=== PATIENT | male | born 1950 | race Caucasian/White ===

== ENCOUNTER → 2017-09-24 | Outpatient (CLI) | payer OTHER ==
--- NOTE | 2017-09-24 14:46 | US ---
HISTORY: Inguinal, pelvic, perineal and testicular pain. Study: Bladder ultrasound Comparison: No priors Technique: Grayscale imaging of the urinary bladder is performed. Findings: Urinary bladder is intrinsically normal. At the time of the examination the urinary bladder appeared to contain about 143 mL. There is prostatic enlargement present. The prostate measures about 5 cm in diameter. There is an approximately 3 x 3.6 cm intravesical component. No intrinsic bladder mass or s tone is seen. IMPRESSION: Prostatic enlargement with intravesical component. Reported By:
--- NOTE | 2017-09-24 14:51 | US ---
Examination: Scrotal ultrasound. Clinical History: Inguinal, pelvic, perineal and testicular pain. Technique: Real-time grayscale ultrasound was used to evaluate the testes bilaterally. Comparison: None available. Findings: Both testes are normal in echogenicity with no focal mass. There is normal and equal blood flow demon strated to the testes bilaterally. The right testis measures 4.0 x 1.8 x 2.8 cm and the left testis m easures 4.1 x 1.6 x 2.6 cm. There is a 1.2 x 0.8 cm circumscribed anechoic mass associated with the left epididymis, consistent w ith a small epididymal cyst or spermatocele. There are 2 additional tiny 1-2 mm cystic lesions associ ated with the right epididymis, consistent with small epididymal cysts or spermatoceles. Blood flow is demonstrated to the left and right epididymis, suggestive of a bilateral epididymitis. No hydrocele or varicocele is noted. Impression: 1. Small epididymal cysts versus spermatoceles associated with the left and right epididymis. 2. Blood flow is demonstrated to the left and right epididymis, suggestive of a bilateral epididymiti s. 3. The remainder of the examination is unremarkable. Reported By:
== END | disposition home or self-care (01) | DRG 392 ==
LOC: RAD 10:43
PROVIDERS: ATTEND Nurse Practitioner Family
DX: R10.2 Pelvic and perineal pain (principal); N50.811 Right testicular pain; N50.812 Left testicular pain; N40.0 Benign prostatic hyperplasia without lower urinary tract symptoms
CPT/HCPCS: 76856; 76870

== ENCOUNTER 2019-05-13 21:16 | Inpatient (IN) ==
--- NOTE | 2019-05-13 21:56 | DR.CP ---
HPI Time Seen Time Seen by Provider: 05/13/19 21:53 HPI Comment HPI Comment: PATIENT IS 68YR OLD MALE WITH HISTORY OF [place], S/P CABG AND CARDIAC STENT IS IN ED WITH INCREEASING INTERMITTENT CHEST PRESSURE AND PAIN, 8/10 PAIN IN SUBSTERNAL AREA RADIATING TO BACK OF CHEST. PAIN ASSOCIATED WITH SOB AND WE AKNESS. NO FEVER. Complaint Chief Complaint Doctor Comments: INTERMITTENT CHEST PAIN FOR 4 WEEKS THAT IS WORSE TONIGHT. Reviewed Nurses Notes Review: Yes Source History Provided: Patient Mode of Arrival Mode of Arrival: Ambulatory Timing Came on: Suddenly Pain: Present Now Duration Duration: Intermittent Duration: Weeks Location Location of Chest Pain: Chest (SUNSTERNAL CHEST PAIN.) Chest Pain Radiation Location: Back Context Onset: At rest and With light exertion Cardiac Risk Factors: Smoker (PREVIOUS SMOKER.) PE Risk Factors: None History of: [place] and Angioplasty Prehospital Care: None Quality Quality: Sharp and Pressure like Severity Severity: Moderate Modifying Factors Worsens: Exertion Impoves: Rest Associated Signs and Symptoms Associated Signs and Symptoms: Shortness of Breath Other History Other History: CAD. ROS Review of Systems Constitutional: See HPI, Weakness and Fatigue; negative Chills and Fever Eyes: No Symptoms Reported and See HPI; negative Eye Pain, Blurred Vision and Diplopia ENTM: No Symptoms Reported and See HPI; negative Ear Pain, Nose Discharge, Epistaxis, Nose Congestion and Throat Pain Respiratoy: See HPI, Non-Productive Cough and Short of Breath; negative Wheezing Cardiovascular: See HPI and Chest Pain; negative Edema, Palpitations and Syncope Gastrointestinal/Abdominal: No Symptoms Reported and See HPI; negative Abdominal Pain, Constipation, Diarrhea, Nausea and Vomiting Genitourinary: No Symptoms Reported and See HPI; negative Dysuria, Frequency and Hematuria Neurological: See HPI, Weakness and Dizziness; negative Headache Musculoskeletal: No Symptoms Reported and See HPI; negative Back Pain, Muscle Pain and Neck Pain Integumentary: See HPI; negative Change in Color, Dryness, Rash and Juandice Hematologic/Lymphatic: See HPI, Easy Bleeding and Easy Bruising; negative Swollen Glands and Lymphadenopathy Endocrine: No Symptoms Reported and See HPI; negative Increased Thirst, Increased Urine and Decreased Appetite Psychiatric: No Symptoms Reported and See HPI; negative Hallucinations All Other Systems: Reviewed and Negative PE Vitals Vitals: Temperature 97.8 F Pulse Rate [Brachial] 92 Pulse Rate 78 Respiratory Rate 20 Blood Pressure [Left Arm] 104/59 Blood Pressure 120/66 O2 Sat by Pulse Oximetry 96 General Limitations: No Limitations General Appearance: Alert and In No Apparent Distress Head Head Exam: Normal Inspection, Atraumatic and Normocephalic Eyes Eye exam: Normal Appearance, PERRL and EOMI; negative Scleral Icterus and Conjunctival Injection ENT ENT Exam: Normal Exam, Normal Oropharynx, Normal External Ear Exam and TM's Normal Bilaterally Chest Chest Inspection: Normal Inspection and Symmetric Chest Wall Rise; negative Tenderness and Rash Respiratory Respiratory Exam: Normal Lung Sounds Bilat; negative Accessory Muscle Use, Chest Wall Tenderness and Respiratory Distress Respiratory Exam: Bilateral: Rhonchi and Lower: Rhonchi Cardiovascular Cardiovascular Exam: Regular Rate, Normal Rhythm and Normal Heart Sounds; negative Systolic Murmur and Diastolic Murmur Pulse: Normal Edema: Normal Abdominal Exam Abdominal Exam: Normal Inspection, Normal Bowel Sounds and Soft; negative Tenderness, Organomegaly and Mass Extremities Extremities Exam: Normal Inspection and Normal Capillary Refill; negative Tenderness, Edema and Calf Tenderness Back Back Exam: Normal Inspection; negative Tenderness, (R) CVA Tenderness, (L) CVA Tenderness, Paraspinal Tenderness and Vertebral Tenderness Neurologic Neurological Exam: Alert, Oriented X3 and CN II-XII Intact; negative Motor Sensory Deficit Psychiatric Psychiatric Exam: Normal Affect and Normal Mood Skin Skin Exam: Warm, Dry, Intact and Normal Color MDM Differential Diagnosis Differential Diagnosis: Angina, Chest Wall Pain, CHF, Costochondritis, Gastritis, Myocardial Infarction, Pericarditis, Pneumonia, Pneumothorax and Pulmonary Embolus COURSE Treatment Treatment: SEE ORDERS. Education/Counseling Education/Counseling: Patient Educated On: Diagnosis ROR Labs Reviewed Laboratory Results Reviewed?: Yes Result Diagrams: 05/18/19 05:03 05/18/19 05:03 Laboratory: 05/14/19 02:00 Blood Blood Culture - Final 05/14/19 02:13 Blood Blood Culture - Final 05/15/19 12:05 Sputum - Expectorated Sputum Sputum Culture - Final 05/15/19 12:05 Sputum - Expectorated Sputum - Final WBC 3.9 X10^3/uL (3.6-10.0) 05/18/19 05:03 RBC 3.36 X10^6/uL (4.7-6.0) L 05/18/19 05:03 Hgb 11.5 g/dL (13.5-18.0) L 05/18/19 05:03 Hct 33.4 % (42.0-54.0) L 05/18/19 05:03 MCV 99.5 fL (80.0-100.0) 05/18/19 05:03 MCH 34.2 pg (27.0-34.0) H 05/18/19 05:03 MCHC 34.4 g/dL (33.0-35.0) 05/18/19 05:03 RDW 16.2 % (11.6-16.5) 05/18/19 05:03 Plt Count 107 X10^3/uL (150.0-450.0) L 05/18/19 05:03 MPV 7.1 fL (7.4-11.0) L 05/18/19 05:03 Neut % (Auto) 65.1 % (42.0-75.0) 05/18/19 05:03 Lymph % (Auto) 18.8 % (21.0-51.0) L 05/18/19 05:03 [place] % (Auto) 7.8 % (0.0-13.0) 05/18/19 05:03 Eos % (Auto) 8.0 % (0.9-2.9) H 05/18/19 05:03 Baso % (Auto) 0.3 % (0.2-1.0) 05/18/19 05:03 Neut # (Auto) 2.5 x10^3/uL (2.2-4.8) 05/18/19 05:03 Lymph # (Auto) 0.7 X10^3/uL (1.3-2.9) L 05/18/19 05:03 [place] # (Auto) 0.3 x10^3/uL (0.3-0.8) 05/18/19 05:03 Eos # (Auto) 0.3 x10^3/uL (0.0-0.2) H 05/18/19 05:03 Baso # (Auto) 0.0 X10^3/uL (0.0-0.1) 05/18/19 05:03 Absolute Nucleated RBC 0.2 /100WBC 05/18/19 05:03 ESR 43 MM/HOUR (0-15) H 05/14/19 04:14 Sodium 137 mmol/L (136-145) 05/18/19 05:03 Corrected Sodium TNP 05/18/19 05:03 Potassium 3.8 mmol/L (3.5-5.1) 05/18/19 05:03 Chloride 105 mmol/L (98-107) 05/18/19 05:03 Carbon Dioxide 23.9 mmol/L (21-32) 05/18/19 05:03 BUN 8 mg/dL (7-18) 05/18/19 05:03 Creatinine 0.86 mg/dL (0.70-1.30) 05/18/19 05:03 Est GFR (MDRD) Af Amer > 60 (>60) 05/18/19 05:03 Est GFR (MDRD) Non-Af > 60 (>60) 05/18/19 05:03 Glucose 101 mg/dL (65-99) H 05/18/19 05:03 Calcium 8.4 mg/dL (8.5-10.1) L 05/18/19 05:03 Corrected Calcium 9.6 mg/dL (8.5-10.1) 05/18/19 05:03 Magnesium 2.0 mg/dL (1.7-2.9) 05/15/19 04:46 Total Bilirubin 0.40 mg/dL (0.2-1.0) 05/18/19 05:03 AST 42 Units/L (15-37) H 05/18/19 05:03 ALT 36 Units/L (12-78) 05/18/19 05:03 Alkaline Phosphatase 74 Units/L (46-116) 05/18/19 05:03 Creatine Kinase 24 Units/L (39-308) L 05/14/19 11:10 CK-MB (CK-2) < 1.0 ng/mL (0-4.0) 05/14/19 11:10 CK/CKMB % Calc 4.2 % (<4) 05/14/19 11:10 Troponin I < 0.02 ng/mL (0-1.5) 05/14/19 11:10 C-Reactive Protein 70.30 mg/L (0-3.0) H 05/14/19 04:14 Total Protein 6.2 g/dL (6.4-8.2) L 05/18/19 05:03 Albumin 2.5 g/dL (3.4-5.0) L 05/18/19 05:03 Globulin 3.7 g/dL (2.5-4.5) 05/18/19 05:03 Albumin/Globulin Ratio 0.7 Ratio (1.1-2.1) L 05/18/19 05:03 Specimen Type Clean catch urine 05/14/19 10:58 Urine Color Dark yellow (YELLOW) 05/14/19 10:58 Urine Appearance Hazy (CLEAR) 05/14/19 10:58 Urine pH 5.0 (5.0 - 8.0) 05/14/19 10:58 Ur Specific [place] 1.010 (1.000-1.030) 05/14/19 10:58 Urine Protein 1+ (NEGATIVE) 05/14/19 10:58 Urine Glucose (UA) Negative (NEGATIVE) 05/14/19 10:58 Urine Ketones Negative (NEGATIVE) 05/14/19 10:58 Urine Occult Blood 1+ (NEGATIVE) 05/14/19 10:58 Urine Nitrite Negative (NEGATIVE) 05/14/19 10:58 Urine Bilirubin Negative (NEGATIVE) 05/14/19 10:58 Urine Urobilinogen 1+ (NORMAL) 05/14/19 10:58 Ur Leukocyte Esterase 1+ (NEGATIVE) 05/14/19 10:58 Urine RBC 0-2 /HPF (NONE SEEN) 05/14/19 10:58 Urine WBC 3-5 /HPF (NONE SEEN) 05/14/19 10:58 Ur Squamous Epith Cells Rare /HPF (NEGATIVE) 05/14/19 10:58 Urine Bacteria Trace /HPF (NEGATIVE) 05/14/19 10:58 Ur Culture Indicated? No/not indicated 05/14/19 10:58 XRAY XRAY Interpreted by: Radiologist XRAY Findings: REPORT ON RECORD NOTED AND DISCUSS WITH PATIENT. Opioid Opioid Risk Tool Age (Micheal box if 16-45): No Total: 0 Total Score Risk Category: Low Risk Copyright: Romel GANDHI predicting aberrant behaviors Management Prescription drug monitoring program results: PDMP was not reviewed Diagnosis Discharge Problem: Pneumonia Chest pain Qualifiers: Chest pain type: precordial pain Qualified Code(s): R07.2 - Precordial pain Instructions Instructions: Community-Acquired Pneumonia, Adult, [id number]
[2019-05-13 22:03] LABS: BASOPHILS # (AUTO) 0.1 X10^3/uL (0.0-0.1); BASOPHILS % (AUTO) 0.6 % (0.2-1.0); EOSINOPHILS # (AUTO) 0.2 x10^3/uL (0.0-0.2); EOSINOPHILS % (AUTO) 2.1 % (0.9-2.9); HEMATOCRIT 43.7 % (42.0-54.0); HEMOGLOBIN 15.4 g/dL (13.5-18.0); LYMPHOCYTES # (AUTO) 0.8 X10^3/uL (1.3-2.9); LYMPHOCYTES % (AUTO) 8.5 % (21.0-51.0); MEAN CORPUSCULAR HEMOGLOBIN 34.1 pg (27.0-34.0); MEAN CORPUSCULAR HGB CONC 35.1 g/dL (33.0-35.0); MEAN CORPUSCULAR VOLUME 97.2 fL (80.0-100.0); MEAN PLATELET VOLUME 6.9 fL (7.4-11.0); MONOCYTES # (AUTO) 0.2 x10^3/uL (0.3-0.8); MONOCYTES % (AUTO) 2.2 % (0.0-13.0); NEUTROPHILS # (AUTO) 7.9 x10^3/uL (2.2-4.8); NEUTROPHILS % (AUTO) 86.6 % (42.0-75.0); PLATELET COUNT 167 X10^3/uL (150.0-450.0); RED CELL DISTRIBUTION WIDTH 16.2 % (11.6-16.5); WHITE BLOOD COUNT 9.1 X10^3/uL (3.6-10.0)
--- NOTE | 2019-05-13 22:18 | RAD ---
Chest AP portable Indication: Chest pain radiating to the right side. Findings: There is no pneumothorax. There is cardiomegaly with sternotomy change. Monitoring leads obscure detail. There is COPD with interstitial lung disease and scarring. Dense left lung opacities are concerning for pneumonia. Impression: 1. Cardiomegaly and COPD 2. Opacities in left lung favoring multifocal pneumonia. Underlying neoplasm is not excluded. Compare with any available outside prior studies. Follow-up to resolution. CT follow-up recommended, potentially non emergently, depending on symptoms. Reported By:
[2019-05-13 22:19] LABS: BLOOD UREA NITROGEN 13 mg/dL (7-18); CALCIUM 9.5 mg/dL (8.5-10.1); CARBON DIOXIDE 21.9 mmol/L (21-32); CHLORIDE 98 mmol/L (98-107); COR NA(FOR HYPERGLY) 133 mmol/L (136-145); CREATININE 0.91 mg/dL (0.70-1.30); SODIUM 132 mmol/L (136-145); TROPONIN I < 0.02 ng/mL (0-1.5); eGFR NON BLACK RACES > 60 (>60)
[2019-05-13 22:24] LABS: ALANINE AMINOTRANSFERASE 43 Units/L (12-78); ALBUMIN 3.4 g/dL (3.4-5.0); ALKALINE PHOSPHATASE 105 Units/L (46-116); ASPARTATE AMINO TRANSFERASE 39 Units/L (15-37); CKMB % 3.9 % (<4); CREATINE KINASE 26 Units/L (39-308); CREATINE KINASE MB < 1.0 ng/mL (0-4.0); TOTAL PROTEIN 8.2 g/dL (6.4-8.2)
[2019-05-14] MEDS ORDERED: NS 1000 ML 1,000 ML IV ONE (00:08)
[2019-05-14] MEDS ORDERED: NS 1000 ML 1,000 ML ONE (00:13)
[2019-05-14] MEDS ORDERED: SILVER NITRATE STICK APPL ONE (00:44)
[2019-05-14] MEDS ORDERED: ZOFRAN INJ 4 MG VIAL IVP ONE (01:53)
[2019-05-14] MEDS ORDERED: MORPHINE SULFATE INJ 4 MG IVP ONE (01:53)
[2019-05-14] MEDS ORDERED: ROCEPHIN VIAL 1 GRAM IM ONE (01:58)
[2019-05-14] MEDS ORDERED: ZOFRAN INJ 4 MG VIAL ONE (02:16)
[2019-05-14] MEDS ORDERED: ROCEPHIN VIAL 1 GRAM ONE (02:17)
[2019-05-14] MEDS ORDERED: MORPHINE SULFATE INJ 4 MG ONE (02:17)
[2019-05-14] MEDS ORDERED: ROCEPHIN VIAL 1 GRAM IVP ONE (02:18)
[2019-05-14] MEDS ORDERED: SALINE 3% 15 ML NEB TX NEB ONE (02:45)
[2019-05-14 03:10] VITALS: BMI 24.2
[2019-05-14] MEDS: ULTRAM PO SCH ×4 (04:42→20:02)
[2019-05-14 05:09] LABS: BASOPHILS % (AUTO) 0.3 % (0.2-1.0); EOSINOPHILS # (AUTO) 0.2 x10^3/uL (0.0-0.2); EOSINOPHILS % (AUTO) 2.6 % (0.9-2.9); HEMATOCRIT 40.4 % (42.0-54.0); HEMOGLOBIN 14.1 g/dL (13.5-18.0); LYMPHOCYTES % (AUTO) 11.1 % (21.0-51.0); MEAN CORPUSCULAR HEMOGLOBIN 34.3 pg (27.0-34.0); MEAN CORPUSCULAR VOLUME 98.1 fL (80.0-100.0); MEAN PLATELET VOLUME 7.7 fL (7.4-11.0); MONOCYTES # (AUTO) 0.2 x10^3/uL (0.3-0.8); MONOCYTES % (AUTO) 2.1 % (0.0-13.0); NEUTROPHILS # (AUTO) 7.2 x10^3/uL (2.2-4.8); NEUTROPHILS % (AUTO) 83.9 % (42.0-75.0); PLATELET COUNT 144 X10^3/uL (150.0-450.0); RED BLOOD COUNT 4.12 X10^6/uL (4.7-6.0); RED CELL DISTRIBUTION WIDTH 16.3 % (11.6-16.5); WHITE BLOOD COUNT 8.6 X10^3/uL (3.6-10.0)
[2019-05-14 05:18] LABS: ALANINE AMINOTRANSFERASE 40 Units/L (12-78); ALKALINE PHOSPHATASE 93 Units/L (46-116); ASPARTATE AMINO TRANSFERASE 38 Units/L (15-37); BLOOD UREA NITROGEN 12 mg/dL (7-18); CALCIUM 9.1 mg/dL (8.5-10.1); CARBON DIOXIDE 22.9 mmol/L (21-32); CHLORIDE 99 mmol/L (98-107); COR CA(FOR HYPOALB) 9.9 mg/dL (8.5-10.1); COR NA(FOR HYPERGLY) 132 mmol/L (136-145); CREATININE 0.73 mg/dL (0.70-1.30); MAGNESIUM 1.6 mg/dL (1.7-2.9); SODIUM 132 mmol/L (136-145); TOTAL PROTEIN 7.4 g/dL (6.4-8.2); eGFR NON BLACK RACES > 60 (>60)
[2019-05-14 05:37] LABS: CKMB % 3.7 % (<4); CREATINE KINASE 27 Units/L (39-308); CREATINE KINASE MB < 1.0 ng/mL (0-4.0); TROPONIN I < 0.02 ng/mL (0-1.5)
[2019-05-14] MEDS ORDERED: VIBRAMYCIN 100 MG in D5W 250 ML IV 250 ML IV ONE (06:00)
[2019-05-14] MEDS: DUONEB 0.5 MG/3 MG NEB SCH ×4 (08:37→20:01)
[2019-05-14] MEDS ORDERED: ROCEPHIN VIAL 1 GRAM IVP SCH (09:00)
[2019-05-14] MEDS ORDERED: METHOTREXATE PO SCH (09:00)
[2019-05-14] MEDS: LEVAQUIN PREMIX IV 500 MG 500 MG/100 ML BAG IV SCH (09:04)
[2019-05-14] MEDS: FORTAZ or TAZICEF VIAL INJ IVP SCH ×3 (09:04→21:15)
[2019-05-14] MEDS: ALDACTONE TAB 25 MG PO SCH (09:05)
[2019-05-14] MEDS ORDERED: PHARMACY CONSULT - DOSE _____ XX SCH (10:00)
[2019-05-14] MEDS ORDERED: NS 100 ML IV 100 ML ONE (10:03)
[2019-05-14] MEDS: LOVENOX INJ 40 MG SYR SC SCH (10:47)
[2019-05-14] MEDS: ZOFRAN INJ 4 MG VIAL IVP PRN ×2 (10:50→20:03)
[2019-05-14] MEDS: NORCO 5/325 MG TAB PO PRN ×2 (11:10→23:00)
--- NOTE | 2019-05-14 11:35 | CT ---
HISTORY: Chest pain, shortness of breath Study: CT chest with contrast Comparison: None Technique: Axial post-contrast images with coronal and sagittal reformats. Dose reduction procedures were used with mA/kv adjusted for body size. Findings: Examination of the mediastinum demonstrated no evidence for mediastinal masses, enlarged mediastinal or enlarged hilar adenopathy, aortic abnormality of significance or pleural effusions. There is a hiatal hernia present. No chest wall or axillary abnormality is identified. Those portions of the upper abdominal organs visualized were within normal limits. Examination of the lung salas demonstrated diffuse severe changes of paraseptal and centrilobular emphysema. No definite nodules, masses, alveolar infiltrates, areas of consolidation, peribronchial thickening, or bronchiectasis is identified. Mild peripheral paraseptal interstitial lung changes are present. The lungs are mildly hyperinflated. 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
[2019-05-14 11:46] LABS: CREATINE KINASE 24 Units/L (39-308)
[2019-05-14 12:10] LABS: BILIRUBIN,URINE NEGATIVE (NEGATIVE); BLOOD/HEMOGLOBIN,URINE 1+ (NEGATIVE); GLUCOSE, URINE NEGATIVE (NEGATIVE); KETONES,URINE NEGATIVE (NEGATIVE); LEUKOCYTE ESTERASE ,URINE 1+ (NEGATIVE); NITRITES,URINE NEGATIVE (NEGATIVE); PROTEIN,URINE 1+ (NEGATIVE); UROBILINOGEN,URINE 1+ (NORMAL)
[2019-05-14 12:11] LABS: CREATINE KINASE MB < 1.0 ng/mL (0-4.0)
[2019-05-14 12:11] LABS: APPEARANCE,URINE HAZY (CLEAR); COLOR,URINE DARK YELLOW (YELLOW)
[2019-05-14 12:12] LABS: CKMB % 4.2 % (<4)
[2019-05-14 12:14] LABS: TROPONIN I < 0.02 ng/mL (0-1.5)
[2019-05-14 12:19] LABS: BACTERIA,URINE TRACE /HPF (NEGATIVE); RBC,URINE 0-2 /HPF (NONE SEEN); SQUAMOUS EPITHELIAL CELL,UR RARE /HPF (NEGATIVE)
[2019-05-14] MEDS: MORPHINE SULFATE INJ 2 MG INJ IVP PRN ×2 (13:40→19:47)
[2019-05-14] MEDS ORDERED: VIBRAMYCIN 100 MG in D5W 250 ML IV 250 ML IV SCH (21:00)
[2019-05-14] MEDS ORDERED: NS 1/2 1000 ML IV 1,000 ML ONE (21:39)
[2019-05-14] MEDS: NS 1/2 1000 ML IV 1,000 ML IV SCH (21:46)
[2019-05-14] MEDS: MAGNESIUM SULFATE 1 GRAM/100 mL PREMIX 1 GM/100 ML BAG IV PRN ×2 (21:46→22:59)
--- NOTE | 2019-05-14 22:35 | DR.H&P ---
H&P - History & Physical for Day of: H&P Date: 05/14/19 - Chief Complaint Chief Complaint: CHEST PAIN, SOB - History of Present Illness History of Present Illness: IS A 68 YEAR OLD PATIENT OF [email or web address] WHO PRESENTED TO THE ER WITH COMPLAINTS OF CHEST PAIN AND SHORTNESS OF BREATH. HE STATES THAT PAINS STARTED FOUR WEEKS AGO AND HAS PROGRESSIVELY GOTTEN WORSE. ON ARRIVAL, VITALS WERE 98.6-18-132-98%-123/83. LABS WERE OBTAINED. ABNORMAL LAB VALUES INCLUDE THE FOLLOWING: RBC 4.50, SODIUM 132, GLUCOSE 127, TOTAL BILI 1.30, AST 39, CREATINE KINASE 26, GLOBULIN 4.8. CRP 70.30, ESR 43. CARDIAC ENZYMES WITHIN NORMAL LIMITS. URINALYSIS OBTAINED AND REVEALED: WBC 3-5, RBC 0- 2, BACTERIA TRACE, LEUKOCYTES 1+. BLOOD CULTURES ARE PENDING. A CHEST XRAY WAS OBTAINED AND REVEALED: Cardiomegaly and COPD. Opacities in left lung favoring multifocal pneumonia. Underlying neoplasm is not excluded. Compare with any available outside prior studies. Follow-up to resolution. CT follow-up recommended, potentially non emergently, depending on symptoms. AN EKG WAS OBTAINED AND REVEALED: SINUS TACHYCARDIA WITH HR 112. HE WAS GIVEN DOXYCYCLINE AND ROCEPHIN IN THE ER. WE ADMITTED PATIENT FOR FURTHER EVALUATION AND TREATMENT OF CHEST PAIN RULE OUT ACUTE [place] AND PNEUMONIA. WE STARTED NS AT 50ML/HR, LEVAQUIN 500MG IV DAILY, FORTAZ 1G IV Q8H, AND RESPIRATORY TREATMENTS. WE WILL OBTAIN SERIAL CARDIAC ENZYMES AND EKGs. OTHERWISE, WE PLAN TO FOLLOW-UP WITH AM LABS AND CONTINUE TO MONITOR. - Past Medical History Past Medical History: Arthritis, [place] - Past Surgical History Surgical History: Angioplasty/Stents, Appendectomy, CABG/Valve Surgery, Cholecystectomy - Family History Family Medical History: Cancer, [place], Coronary Artery Disease, Sudden Cardiac , Hypertension - Social History Does patient currently use any type of tobacco product: No Have you used tobacco products in the last 12 months: No Type of Tobacco Use: None Alcohol Use: Rarely Drug Use: None Prescription drug monitoring program results: PDMP reviewed and no concerns identified - Medications Home Medications: No Known Drug Allergies Allergy (Verified 05/14/19 09:39) CONTINUE taking the following medications methotrexate sodium 2.5 mg PO DAILY 05/14/19 [History] spironolactone 50 mg PO DAILY 05/14/19 [History] tramadol 50 mg PO BID 05/14/19 [History] - Review of Systems Constitutional: No Symptoms Reported Eyes: No Symptoms Reported ENT: No Symptoms Reported Respiratory: Shortness of Breath, SOB with Excertion Cardiovascular: Chest Pain Gastrointestinal: No Symptoms Reported Genitourinary: No Symptoms Reported Musculoskeletal: No Symptoms Reported Skin: No Symptoms Reported Neurological: Weakness - Physical Exam Vital Signs: Temperature 97.7 F Pulse Rate [Brachial] 98 Pulse Rate 101 Respiratory Rate 20 Blood Pressure [Left Arm] 119/69 Blood Pressure 120/66 O2 Sat by Pulse Oximetry 93 Oriented: Normal Eyes: Normal Ear: Normal Nose: Normal Throat: Normal Respiratory: Diminished Throughout Cardiovascular: Tachycardia. negative: S3, S4, Murmur : Normal Auscultation: Bowel Sounds: Normal Palpation: Normal Tenderness: Normal Skin: Normal Musculoskeletal: Normal Psychiatric: Normal Mood Description: Calm Affect: Normal Speech Pattern: Clear - Assessment/Plan (1) Pneumonia Qualifiers: Pneumonia type: due to unspecified organism Laterality: left Lung location: unspecified part of lung Qualified Code(s): J18.9 - Pneumonia, unspecified organism Status: Acute Plan: IV ANTIBIOTICS, RESPIRATORY TX, CONTINUE TO MONITOR (2) Chest pain, rule out acute myocardial infarction Status: Acute Plan: SERIAL CARDIAC ENZYMES AND EKGS - Allergies Allergies/Adverse Reactions: Allergies Allergy/AdvReac Type Severity Reaction Status Date / Time No Known Drug Allergies Allergy Verified 05/14/19 09:39
[2019-05-15] MEDS: MORPHINE SULFATE INJ 2 MG INJ IVP PRN ×4 (03:14→19:34)
[2019-05-15] MEDS: FORTAZ or TAZICEF VIAL INJ IVP SCH ×3 (05:15→21:13)
[2019-05-15 05:32] LABS: BASOPHILS % (AUTO) 0.3 % (0.2-1.0); EOSINOPHILS # (AUTO) 0.3 x10^3/uL (0.0-0.2); EOSINOPHILS % (AUTO) 5.5 % (0.9-2.9); HEMATOCRIT 37.6 % (42.0-54.0); LYMPHOCYTES # (AUTO) 0.7 X10^3/uL (1.3-2.9); MEAN CORPUSCULAR HEMOGLOBIN 34.1 pg (27.0-34.0); MEAN CORPUSCULAR HGB CONC 34.6 g/dL (33.0-35.0); MEAN CORPUSCULAR VOLUME 98.5 fL (80.0-100.0); MEAN PLATELET VOLUME 7.3 fL (7.4-11.0); MONOCYTES # (AUTO) 0.1 x10^3/uL (0.3-0.8); MONOCYTES % (AUTO) 2.4 % (0.0-13.0); NEUTROPHILS # (AUTO) 4.1 x10^3/uL (2.2-4.8); NEUTROPHILS % (AUTO) 77.8 % (42.0-75.0); PLATELET COUNT 132 X10^3/uL (150.0-450.0); RED BLOOD COUNT 3.82 X10^6/uL (4.7-6.0); WHITE BLOOD COUNT 5.3 X10^3/uL (3.6-10.0)
[2019-05-15 05:41] LABS: ALANINE AMINOTRANSFERASE 35 Units/L (12-78); ALBUMIN 2.8 g/dL (3.4-5.0); ALKALINE PHOSPHATASE 86 Units/L (46-116); ASPARTATE AMINO TRANSFERASE 31 Units/L (15-37); BLOOD UREA NITROGEN 8 mg/dL (7-18); CALCIUM 8.7 mg/dL (8.5-10.1); CARBON DIOXIDE 24.9 mmol/L (21-32); CHLORIDE 97 mmol/L (98-107); COR CA(FOR HYPOALB) 9.7 mg/dL (8.5-10.1); CREATININE 0.82 mg/dL (0.70-1.30); SODIUM 131 mmol/L (136-145); eGFR NON BLACK RACES > 60 (>60)
--- NOTE | 2019-05-15 06:07 | RAD ---
Examination: AP chest History: SOB Comparison reference: Chest CT 05/14/2019 Findings: Continued normal heart size with surgical findings of CABG. The lungs are hyperinflated with chronic interstitial disease. Hiatal hernia is suggested. Impression: Findings described consistent with COPD and chronic interstitial pulmonary disease. Status post CABG. Suspect hiatal hernia. Reported By:
[2019-05-15] MEDS: ALDACTONE TAB 25 MG PO SCH (08:27)
[2019-05-15] MEDS: DUONEB 0.5 MG/3 MG NEB SCH ×4 (08:37→20:00)
[2019-05-15] MEDS: LEVAQUIN PREMIX IV 500 MG 500 MG/100 ML BAG IV SCH (09:03)
[2019-05-15] MEDS: LOVENOX INJ 40 MG SYR SC SCH (09:03)
[2019-05-15] MEDS: ULTRAM PO SCH ×2 (09:05→21:13)
[2019-05-15] MEDS: NS 1/2 1000 ML IV 1,000 ML IV SCH ×4 (09:42→23:25)
[2019-05-15] MEDS: NORCO 5/325 MG TAB PO PRN (17:15)
[2019-05-15] MEDS ORDERED: NS 1/2 1000 ML IV 1,000 ML ONE (19:37)
[2019-05-16] MEDS: MORPHINE SULFATE INJ 2 MG INJ IVP PRN ×5 (00:10→21:23)
[2019-05-16] MEDS: NORCO 5/325 MG TAB PO PRN ×2 (01:55→16:52)
[2019-05-16] MEDS: FORTAZ or TAZICEF VIAL INJ IVP SCH ×3 (05:26→21:23)
[2019-05-16 05:36] LABS: BASOPHILS % (AUTO) 0.4 % (0.2-1.0); EOSINOPHILS # (AUTO) 0.4 x10^3/uL (0.0-0.2); EOSINOPHILS % (AUTO) 6.5 % (0.9-2.9); HEMATOCRIT 35.7 % (42.0-54.0); HEMOGLOBIN 12.3 g/dL (13.5-18.0); LYMPHOCYTES % (AUTO) 16.7 % (21.0-51.0); MEAN CORPUSCULAR HEMOGLOBIN 33.9 pg (27.0-34.0); MEAN CORPUSCULAR HGB CONC 34.5 g/dL (33.0-35.0); MEAN CORPUSCULAR VOLUME 98.2 fL (80.0-100.0); MEAN PLATELET VOLUME 7.3 fL (7.4-11.0); MONOCYTES # (AUTO) 0.2 x10^3/uL (0.3-0.8); MONOCYTES % (AUTO) 3.8 % (0.0-13.0); NEUTROPHILS # (AUTO) 4.2 x10^3/uL (2.2-4.8); NEUTROPHILS % (AUTO) 72.6 % (42.0-75.0); PLATELET COUNT 130 X10^3/uL (150.0-450.0); RED BLOOD COUNT 3.64 X10^6/uL (4.7-6.0); RED CELL DISTRIBUTION WIDTH 15.9 % (11.6-16.5); WHITE BLOOD COUNT 5.8 X10^3/uL (3.6-10.0)
[2019-05-16 05:47] LABS: ALANINE AMINOTRANSFERASE 32 Units/L (12-78); ALBUMIN 2.8 g/dL (3.4-5.0); ALKALINE PHOSPHATASE 84 Units/L (46-116); ASPARTATE AMINO TRANSFERASE 36 Units/L (15-37); BLOOD UREA NITROGEN 9 mg/dL (7-18); CALCIUM 8.6 mg/dL (8.5-10.1); CARBON DIOXIDE 23.6 mmol/L (21-32); CHLORIDE 98 mmol/L (98-107); COR CA(FOR HYPOALB) 9.6 mg/dL (8.5-10.1); CREATININE 0.76 mg/dL (0.70-1.30); SODIUM 132 mmol/L (136-145); TOTAL PROTEIN 6.9 g/dL (6.4-8.2); eGFR NON BLACK RACES > 60 (>60)
--- NOTE | 2019-05-16 06:17 | RAD ---
HISTORY: Dyspnea Study: Single-view chest Comparison: May 14, 2019 and May 15, 2019 Findings: Prior sternotomy. The trachea is midline. The cardiac silhouette is unremarkable. There is chronic interstitial thickening compatible with COPD without definite new lobar mass or consolidation. There is no effusion or pneumothorax. The bony thorax is grossly unremarkable. Hiatal hernia is again noted. IMPRESSION: COPD without definite new acute cardiopulmonary disease. Reported By:
[2019-05-16] MEDS: LOVENOX INJ 40 MG SYR SC SCH (08:08)
[2019-05-16] MEDS: LEVAQUIN PREMIX IV 500 MG 500 MG/100 ML BAG IV SCH (08:08)
[2019-05-16] MEDS: ULTRAM PO SCH ×2 (08:08→21:23)
[2019-05-16] MEDS: DUONEB 0.5 MG/3 MG NEB SCH ×4 (09:25→21:00)
[2019-05-16] MEDS: PEPCID 20 MG IV PREMIX* 20 MG/50 ML BAG IV SCH ×2 (10:03→21:22)
[2019-05-16] MEDS: PROTONIX INJ 40 MG VIAL IVP SCH ×2 (10:03→21:23)
[2019-05-16] MEDS: TORADOL 30 MG VIAL IVP PRN ×2 (10:13→17:59)
[2019-05-16] MEDS: NS 1/2 1000 ML IV 1,000 ML IV SCH ×2 (13:34→13:53)
[2019-05-16] MEDS ORDERED: NS 1/2 1000 ML IV 1,000 ML ONE (13:40)
--- NOTE | 2019-05-16 22:27 | PCM.PROG ---
Progress Note - Progress Note for Day of Date of Exam: 05/15/19 - Subjective Subjective: WAS ADMITTED FOR PNEUMONIA AND CHEST PAIN, RULE OUT ACUTE [place]. TODAY, HE IS ALERT AND ORIENED, LYING IN BED ON MORNING ROUNDS. HE CONTINUE WITH COMPLAINTS OF SHORTNESS OF BREATH TODAY. HE DENIES CHEST PAIN, BUT DOES REPORT GENERALIZED BODY ACHES. HE DOES HAVE A HISTORY OF RHEUMATOID ARTHRITIS. ON EXAMINATION, HEART IS REGULAR IN RATE AND RHYTHM. BILATERAL LUNGS ARE NOTED WITH DIMINISHED LUNG SOUNDS THROUGHOUT. ABDOMEN IS ROUND, SOFT, AND NON-TENDER WITH NORMAL BOWEL SOUNDS IN ALL QUADRANTS. BILATERAL ELBOWS ARE NOTED WITH FLUID ACCUMULATION. HIS VITALS THIS MORNING ARE 98.1-97-18-97%-132/79. LABS WERE OBTAINED. ABNORMAL LAB VALUES INCLUDE THE FOLLOWING: RBC 3.82, HG 13.0, HCT 37.6, PLT COUNT 132, SODIUM 131, CHLORIDE 97, GLUCOSE 101, TOTAL BILI 1.50, ALBUMIN 2.8. BLOOD AND SPUTUM CULTURES ARE PENDING. A CHEST XRAY WAS OBTAINED AND REVEALED: Findings described consistent with COPD and chronic interstitial pulmonary disease. Status post CABG. Suspect hiatal hernia. HE IS CURRENTLY RECEIVING IV FLUIDS AND IV ANTIBIOTICS. WE WILL CONTINUE WITH CURRENT PLAN OF CARE TODAY. OTHERWISE, WE PLAN TO FOLLOW UP WITH AM LABS AND CONTINUE TO MONITOR. - Past Medical Family Social History Past Med/Fam/Surg Hx: No changes since H&P Allergies: Allergies No Known Drug Allergies Allergy (Verified 05/14/19 09:39) - Review of Systems ROS: No change since H&P - Vital Signs and I&O's Vital Signs: Temperature 97.8 F Pulse Rate [Brachial] 102 Pulse Rate 96 Respiratory Rate 18 Blood Pressure [Left Arm] 117/63 Blood Pressure 120/66 O2 Sat by Pulse Oximetry 96 Intake and Output: Intake & Output 05/14/19 05/15/19 05/16/19 05/17/19 11:59 11:59 11:59 11:59 Intake Total 300 / 300 3172 / 3172 2603 / 2603 1130 / 1130 Balance 300 / 300 3172 / 3172 2603 / 2603 1130 / 1130 - Physical Exam Oriented: Normal Eyes: Normal Ear: Normal Nose: Normal Throat: Normal Respiratory: Generalized, Diminished Cardiovascular: Normal. negative: S3, S4, Murmur : Normal Auscultation: Bowel Sounds: Normal Palpation: Normal Tenderness: Normal Skin: Normal Musculoskeletal: Normal Psychiatric: Normal Mood Description: Calm Affect: Normal Speech Pattern: Clear, Appropriate - Laboratory and Diagnostics Result Diagrams: 05/16/19 04:49 05/16/19 04:49 Labs: 05/14/19 02:13 Blood Blood Culture - Preliminary 05/14/19 02:00 Blood Blood Culture - Preliminary 05/15/19 12:05 Sputum - Expectorated Sputum Sputum Culture - Preliminary 05/15/19 12:05 Sputum - Expectorated Sputum - Final Laboratory WBC 5.8 X10^3/uL (3.6-10.0) 05/16/19 04:49 RBC 3.64 X10^6/uL (4.7-6.0) L 05/16/19 04:49 Hgb 12.3 g/dL (13.5-18.0) L 05/16/19 04:49 Hct 35.7 % (42.0-54.0) L 05/16/19 04:49 MCV 98.2 fL (80.0-100.0) 05/16/19 04:49 MCH 33.9 pg (27.0-34.0) 05/16/19 04:49 MCHC 34.5 g/dL (33.0-35.0) 05/16/19 04:49 RDW 15.9 % (11.6-16.5) 05/16/19 04:49 Plt Count 130 X10^3/uL (150.0-450.0) L 05/16/19 04:49 MPV 7.3 fL (7.4-11.0) L 05/16/19 04:49 Neut % (Auto) 72.6 % (42.0-75.0) 05/16/19 04:49 Lymph % (Auto) 16.7 % (21.0-51.0) L 05/16/19 04:49 [place] % (Auto) 3.8 % (0.0-13.0) 05/16/19 04:49 Eos % (Auto) 6.5 % (0.9-2.9) H 05/16/19 04:49 Baso % (Auto) 0.4 % (0.2-1.0) 05/16/19 04:49 Neut # (Auto) 4.2 x10^3/uL (2.2-4.8) 05/16/19 04:49 Lymph # (Auto) 1.0 X10^3/uL (1.3-2.9) L 05/16/19 04:49 [place] # (Auto) 0.2 x10^3/uL (0.3-0.8) L 05/16/19 04:49 Eos # (Auto) 0.4 x10^3/uL (0.0-0.2) H 05/16/19 04:49 Baso # (Auto) 0.0 X10^3/uL (0.0-0.1) 05/16/19 04:49 Absolute Nucleated RBC 0.0 /100WBC 05/16/19 04:49 ESR 43 MM/HOUR (0-15) H 05/14/19 04:14 Sodium 132 mmol/L (136-145) L 05/16/19 04:49 Corrected Sodium TNP 05/16/19 04:49 Potassium 3.7 mmol/L (3.5-5.1) 05/16/19 04:49 Chloride 98 mmol/L (98-107) 05/16/19 04:49 Carbon Dioxide 23.6 mmol/L (21-32) 05/16/19 04:49 BUN 9 mg/dL (7-18) 05/16/19 04:49 Creatinine 0.76 mg/dL (0.70-1.30) 05/16/19 04:49 Est GFR (MDRD) Af Amer > 60 (>60) 05/16/19 04:49 Est GFR (MDRD) Non-Af > 60 (>60) 05/16/19 04:49 Glucose 94 mg/dL (65-99) 05/16/19 04:49 Calcium 8.6 mg/dL (8.5-10.1) 05/16/19 04:49 Corrected Calcium 9.6 mg/dL (8.5-10.1) 05/16/19 04:49 Magnesium 2.0 mg/dL (1.7-2.9) 05/15/19 04:46 Total Bilirubin 0.70 mg/dL (0.2-1.0) 05/16/19 04:49 AST 36 Units/L (15-37) 05/16/19 04:49 ALT 32 Units/L (12-78) 05/16/19 04:49 Alkaline Phosphatase 84 Units/L (46-116) 05/16/19 04:49 Creatine Kinase 24 Units/L (39-308) L 05/14/19 11:10 CK-MB (CK-2) < 1.0 ng/mL (0-4.0) 05/14/19 11:10 CK/CKMB % Calc 4.2 % (<4) 05/14/19 11:10 Troponin I < 0.02 ng/mL (0-1.5) 05/14/19 11:10 C-Reactive Protein 70.30 mg/L (0-3.0) H 05/14/19 04:14 Total Protein 6.9 g/dL (6.4-8.2) 05/16/19 04:49 Albumin 2.8 g/dL (3.4-5.0) L 05/16/19 04:49 Globulin 4.1 g/dL (2.5-4.5) 05/16/19 04:49 Albumin/Globulin Ratio 0.7 Ratio (1.1-2.1) L 05/16/19 04:49 Specimen Type Clean catch urine 05/14/19 10:58 Urine Color Dark yellow (YELLOW) 05/14/19 10:58 Urine Appearance Hazy (CLEAR) 05/14/19 10:58 Urine pH 5.0 (5.0 - 8.0) 05/14/19 10:58 Ur Specific [place] 1.010 (1.000-1.030) 05/14/19 10:58 Urine Protein 1+ (NEGATIVE) 05/14/19 10:58 Urine Glucose (UA) Negative (NEGATIVE) 05/14/19 10:58 Urine Ketones Negative (NEGATIVE) 05/14/19 10:58 Urine Occult Blood 1+ (NEGATIVE) 05/14/19 10:58 Urine Nitrite Negative (NEGATIVE) 05/14/19 10:58 Urine Bilirubin Negative (NEGATIVE) 05/14/19 10:58 Urine Urobilinogen 1+ (NORMAL) 05/14/19 10:58 Ur Leukocyte Esterase 1+ (NEGATIVE) 05/14/19 10:58 Urine RBC 0-2 /HPF (NONE SEEN) 06/14/19 10:58 Urine WBC 3-5 /HPF (NONE SEEN) 05/14/19 10:58 Ur Squamous Epith Cells Rare /HPF (NEGATIVE) 05/14/19 10:58 Urine Bacteria Trace /HPF (NEGATIVE) 05/14/19 10:58 Ur Culture Indicated? No/not indicated 05/14/19 10:58 - Plan (1) Pneumonia Status: Acute Qualifiers: Pneumonia type: due to unspecified organism Laterality: left Lung location: unspecified part of lung Qualified Code(s): J18.9 - Pneumonia, unspecified organism Plan: IV ANTIBIOTICS, RESPIRATORY TX, CONTINUE TO MONITOR (2) Chest pain, rule out acute myocardial infarction Status: Acute Plan: CONTINUE TO MONITOR
[2019-05-17] MEDS ORDERED: NS 1/2 1000 ML IV 1,000 ML ONE ×2 (01:38→19:36)
[2019-05-17] MEDS: MORPHINE SULFATE INJ 2 MG INJ IVP PRN ×3 (02:00→21:28)
[2019-05-17] MEDS: NS 1/2 1000 ML IV 1,000 ML IV SCH ×2 (04:52→15:08)
[2019-05-17] MEDS: NORCO 5/325 MG TAB PO PRN (05:09)
[2019-05-17] MEDS: FORTAZ or TAZICEF VIAL INJ IVP SCH ×3 (05:37→21:08)
[2019-05-17 06:19] LABS: ALANINE AMINOTRANSFERASE 36 Units/L (12-78); ALBUMIN 2.7 g/dL (3.4-5.0); ALKALINE PHOSPHATASE 79 Units/L (46-116); ASPARTATE AMINO TRANSFERASE 45 Units/L (15-37); BLOOD UREA NITROGEN 8 mg/dL (7-18); CALCIUM 8.4 mg/dL (8.5-10.1); CARBON DIOXIDE 22.3 mmol/L (21-32); CHLORIDE 101 mmol/L (98-107); COR CA(FOR HYPOALB) 9.4 mg/dL (8.5-10.1); SODIUM 134 mmol/L (136-145); TOTAL PROTEIN 6.5 g/dL (6.4-8.2); eGFR NON BLACK RACES > 60 (>60)
[2019-05-17 06:42] LABS: BASOPHILS % (AUTO) 0.4 % (0.2-1.0); EOSINOPHILS # (AUTO) 0.4 x10^3/uL (0.0-0.2); EOSINOPHILS % (AUTO) 7.7 % (0.9-2.9); HEMATOCRIT 33.6 % (42.0-54.0); HEMOGLOBIN 11.6 g/dL (13.5-18.0); LYMPHOCYTES # (AUTO) 0.9 X10^3/uL (1.3-2.9); LYMPHOCYTES % (AUTO) 15.9 % (21.0-51.0); MEAN CORPUSCULAR HEMOGLOBIN 34.3 pg (27.0-34.0); MEAN CORPUSCULAR HGB CONC 34.6 g/dL (33.0-35.0); MEAN PLATELET VOLUME 7.3 fL (7.4-11.0); MONOCYTES # (AUTO) 0.4 x10^3/uL (0.3-0.8); MONOCYTES % (AUTO) 6.7 % (0.0-13.0); NEUTROPHILS # (AUTO) 4.1 x10^3/uL (2.2-4.8); NEUTROPHILS % (AUTO) 69.3 % (42.0-75.0); PLATELET COUNT 119 X10^3/uL (150.0-450.0); RED CELL DISTRIBUTION WIDTH 16.2 % (11.6-16.5); WHITE BLOOD COUNT 5.9 X10^3/uL (3.6-10.0)
--- NOTE | 2019-05-17 06:57 | RAD ---
HISTORY: Shortness of breath Study: Chest AP portable Comparison: 05/16/2019 Findings: Patient is status post median sternotomy and CABG. The heart is upper limits normal in size. No congestive heart failure is noted. The lungs are well inflated and free of acute infiltrates. Emphysematous and interstitial lung changes are present. No pleural effusions are identified. IMPRESSION: No acute infiltrates Emphysematous COPD Reported By:
[2019-05-17] MEDS: DUONEB 0.5 MG/3 MG NEB SCH ×4 (09:15→20:16)
[2019-05-17] MEDS: LOVENOX INJ 40 MG SYR SC SCH (09:17)
[2019-05-17] MEDS: PEPCID 20 MG IV PREMIX* 20 MG/50 ML BAG IV SCH ×2 (09:18→20:41)
[2019-05-17] MEDS: PROTONIX INJ 40 MG VIAL IVP SCH ×2 (09:18→20:41)
[2019-05-17] MEDS: ULTRAM PO SCH ×2 (09:18→20:41)
[2019-05-17] MEDS: LEVAQUIN PREMIX IV 500 MG 500 MG/100 ML BAG IV SCH (10:12)
[2019-05-17] MEDS: TORADOL 30 MG VIAL IVP PRN ×2 (15:01)
--- NOTE | 2019-05-17 19:47 | PCM.PROG ---
Progress Note - Progress Note for Day of Date of Exam: 05/16/19 - Subjective Subjective: WAS ADMITTED FOR PNEUMONIA AND CHEST PAIN, RULE OUT ACUTE NC. TODAY, HE IS ALERT AND ORIENED, LYING IN BED ON MORNING ROUNDS. HE CONTINUE WITH COMPLAINTS OF SHORTNESS OF BREATH AND GENERALIZED BODY ACHES TODAY. HE HAS A HISTORY OF RHEUMATOID ARTHRITIS. ON EXAMINATION, HEART IS REGULAR IN RATE AND RHYTHM. BILATERAL LUNGS ARE NOTED WITH DIMINISHED LUNG SOUNDS THROUGHOUT. ABDOMEN IS ROUND, SOFT, AND NON-TENDER WITH NORMAL BOWEL SOUNDS IN ALL QUADRANTS. BILATERAL ELBOWS ARE NOTED WITH FLUID ACCUMULATION. HIS VITALS THIS MORNING ARE 97.6-92-18-98%-98/66. LABS WERE OBTAINED. ABNORMAL LAB VALUES INCLUDE THE FOLLOWING: RBC 3.64, HGB 12.3, HCT 35.7, PLT COUNT 130, SODIUM 132, ALBUMIN 2.8. BLOOD AND SPUTUM CULTURES ARE PENDING. A CHEST XRAY WAS OBTAINED AND REVEALED: COPD without definite new acute cardiopulmonary disease. HE IS CURRENTLY RECEIVING IV FLUIDS AND IV ANTIBIOTICS. WE WILL CONTINUE WITH CURRENT PLAN OF CARE TODAY AND ADD TORADOL 30MG IV Q6H, PEPCID IV, AND PROTONIX IV. OTHERWISE, WE PLAN TO FOLLOW UP WITH AM LABS AND CONTINUE TO MONITOR. - Past Medical Family Social History Past Med/Fam/Surg Hx: No changes since H&P Allergies: Allergies No Known Drug Allergies Allergy (Verified 05/14/19 09:39) - Review of Systems ROS: No change since H&P - Vital Signs and I&O's Vital Signs: Temperature 97.7 F Pulse Rate [Brachial] 97 Pulse Rate 94 Respiratory Rate 20 Blood Pressure [Left Arm] 112/65 Blood Pressure 120/66 O2 Sat by Pulse Oximetry 95 Intake and Output: Intake & Output 05/15/19 05/16/19 05/17/19 05/18/19 11:59 11:59 11:59 11:59 Intake Total 3172 / 3172 2603 / 2603 2910 / 2910 800 / 800 Balance 3172 / 3172 2603 / 2603 2910 / 2910 800 / 800 - Physical Exam Oriented: Normal Eyes: Normal Ear: Normal Nose: Normal Throat: Normal Respiratory: Generalized, Diminished Cardiovascular: Normal. negative: S3, S4, Murmur : Normal Auscultation: Bowel Sounds: Normal Palpation: Normal Tenderness: Normal Skin: Normal Musculoskeletal: Normal Psychiatric: Normal Mood Description: Calm Affect: Normal Speech Pattern: Clear, Appropriate - Laboratory and Diagnostics Result Diagrams: 05/17/19 05:08 05/17/19 05:08 Labs: 05/15/19 12:05 Sputum - Expectorated Sputum Sputum Culture - Final 05/15/19 12:05 Sputum - Expectorated Sputum - Final 05/14/19 02:13 Blood Blood Culture - Preliminary 05/14/19 02:00 Blood Blood Culture - Preliminary Laboratory WBC 5.9 X10^3/uL (3.6-10.0) 05/17/19 05:08 RBC 3.40 X10^6/uL (4.7-6.0) L 05/17/19 05:08 Hgb 11.6 g/dL (13.5-18.0) L 05/17/19 05:08 Hct 33.6 % (42.0-54.0) L 05/17/19 05:08 MCV 99.0 fL (80.0-100.0) 05/17/19 05:08 MCH 34.3 pg (27.0-34.0) H 05/17/19 05:08 MCHC 34.6 g/dL (33.0-35.0) 05/17/19 05:08 RDW 16.2 % (11.6-16.5) 05/17/19 05:08 Plt Count 119 X10^3/uL (150.0-450.0) L 05/17/19 05:08 MPV 7.3 fL (7.4-11.0) L 05/17/19 05:08 Neut % (Auto) 69.3 % (42.0-75.0) 05/17/19 05:08 Lymph % (Auto) 15.9 % (21.0-51.0) L 05/17/19 05:08 [place] % (Auto) 6.7 % (0.0-13.0) 05/17/19 05:08 Eos % (Auto) 7.7 % (0.9-2.9) H 05/17/19 05:08 Baso % (Auto) 0.4 % (0.2-1.0) 05/17/19 05:08 Neut # (Auto) 4.1 x10^3/uL (2.2-4.8) 05/17/19 05:08 Lymph # (Auto) 0.9 X10^3/uL (1.3-2.9) L 05/17/19 05:08 [place] # (Auto) 0.4 x10^3/uL (0.3-0.8) 05/17/19 05:08 Eos # (Auto) 0.4 x10^3/uL (0.0-0.2) H 05/17/19 05:08 Baso # (Auto) 0.0 X10^3/uL (0.0-0.1) 05/17/19 05:08 Absolute Nucleated RBC 0.0 /100WBC 05/17/19 05:08 ESR 43 MM/HOUR (0-15) H 05/14/19 04:14 Sodium 134 mmol/L (136-145) L 05/17/19 05:08 Corrected Sodium TNP 05/17/19 05:08 Potassium 3.9 mmol/L (3.5-5.1) 05/17/19 05:08 Chloride 101 mmol/L (98-107) 05/17/19 05:08 Carbon Dioxide 22.3 mmol/L (21-32) 05/17/19 05:08 BUN 8 mg/dL (7-18) 05/17/19 05:08 Creatinine 0.80 mg/dL (0.70-1.30) 05/17/19 05:08 Est GFR (MDRD) Af Amer > 60 (>60) 05/17/19 05:08 Est GFR (MDRD) Non-Af > 60 (>60) 05/17/19 05:08 Glucose 83 mg/dL (65-99) 05/17/19 05:08 Calcium 8.4 mg/dL (8.5-10.1) L 05/17/19 05:08 Corrected Calcium 9.4 mg/dL (8.5-10.1) 05/17/19 05:08 Magnesium 2.0 mg/dL (1.7-2.9) 05/15/19 04:46 Total Bilirubin 0.60 mg/dL (0.2-1.0) 05/17/19 05:08 AST 45 Units/L (15-37) H 05/17/19 05:08 ALT 36 Units/L (12-78) 05/17/19 05:08 Alkaline Phosphatase 79 Units/L (46-116) 05/17/19 05:08 Creatine Kinase 24 Units/L (39-308) L 05/14/19 11:10 CK-MB (CK-2) < 1.0 ng/mL (0-4.0) 05/14/19 11:10 CK/CKMB % Calc 4.2 % (<4) 05/14/19 11:10 Troponin I < 0.02 ng/mL (0-1.5) 05/14/19 11:10 C-Reactive Protein 70.30 mg/L (0-3.0) H 05/14/19 04:14 Total Protein 6.5 g/dL (6.4-8.2) 05/17/19 05:08 Albumin 2.7 g/dL (3.4-5.0) L 05/17/19 05:08 Globulin 3.8 g/dL (2.5-4.5) 05/17/19 05:08 Albumin/Globulin Ratio 0.7 Ratio (1.1-2.1) L 05/17/19 05:08 Specimen Type Clean catch urine 05/14/19 10:58 Urine Color Dark yellow (YELLOW) 05/14/19 10:58 Urine Appearance Hazy (CLEAR) 05/14/19 10:58 Urine pH 5.0 (5.0 - 8.0) 05/14/19 10:58 Ur Specific [place] 1.010 (1.000-1.030) 05/14/19 10:58 Urine Protein 1+ (NEGATIVE) 05/14/19 10:58 Urine Glucose (UA) Negative (NEGATIVE) 05/14/19 10:58 Urine Ketones Negative (NEGATIVE) 05/14/19 10:58 Urine Occult Blood 1+ (NEGATIVE) 05/14/19 10:58 Urine Nitrite Negative (NEGATIVE) 05/14/19 10:58 Urine Bilirubin Negative (NEGATIVE) 05/14/19 10:58 Urine Urobilinogen 1+ (NORMAL) 05/14/19 10:58 Ur Leukocyte Esterase 1+ (NEGATIVE) 05/14/19 10:58 Urine RBC 0-2 /HPF (NONE SEEN) 05/14/19 10:58 Urine WBC 3-5 /HPF (NONE SEEN) 05/14/19 10:58 Ur Squamous Epith Cells Rare /HPF (NEGATIVE) 05/14/19 10:58 Urine Bacteria Trace /HPF (NEGATIVE) 05/14/19 10:58 Ur Culture Indicated? No/not indicated 05/14/19 10:58 - Plan (1) Pneumonia Status: Acute Qualifiers: Pneumonia type: due to unspecified organism Laterality: left Lung location: unspecified part of lung Qualified Code(s): J18.9 - Pneumonia, unspecified organism Plan: IV ANTIBIOTICS, RESPIRATORY TX, CONTINUE TO MONITOR (2) Chest pain, rule out acute myocardial infarction Status: Acute Plan: CONTINUE TO MONITOR (3) Rheumatoid arthritis Status: Acute Qualifiers: Rheumatoid arthritis location: multiple sites Rheumatoid factor presence: unspecified presence Qualified Code(s): M06.9 - Rheumatoid arthritis, unspecified Plan: TORADOL 30MG IV Q6H, CONTINUE TO MONITOR
[2019-05-18] MEDS: NORCO 5/325 MG TAB PO PRN (02:04)
[2019-05-18] MEDS: MORPHINE SULFATE INJ 2 MG INJ IVP PRN (04:28)
[2019-05-18] MEDS: NS 1/2 1000 ML IV 1,000 ML IV SCH (04:28)
[2019-05-18] MEDS: FORTAZ or TAZICEF VIAL INJ IVP SCH (05:07)
[2019-05-18 05:38] LABS: BASOPHILS % (AUTO) 0.3 % (0.2-1.0); EOSINOPHILS # (AUTO) 0.3 x10^3/uL (0.0-0.2); HEMATOCRIT 33.4 % (42.0-54.0); HEMOGLOBIN 11.5 g/dL (13.5-18.0); LYMPHOCYTES # (AUTO) 0.7 X10^3/uL (1.3-2.9); LYMPHOCYTES % (AUTO) 18.8 % (21.0-51.0); MEAN CORPUSCULAR HEMOGLOBIN 34.2 pg (27.0-34.0); MEAN CORPUSCULAR HGB CONC 34.4 g/dL (33.0-35.0); MEAN CORPUSCULAR VOLUME 99.5 fL (80.0-100.0); MEAN PLATELET VOLUME 7.1 fL (7.4-11.0); MONOCYTES # (AUTO) 0.3 x10^3/uL (0.3-0.8); MONOCYTES % (AUTO) 7.8 % (0.0-13.0); NEUTROPHILS # (AUTO) 2.5 x10^3/uL (2.2-4.8); NEUTROPHILS % (AUTO) 65.1 % (42.0-75.0); PLATELET COUNT 107 X10^3/uL (150.0-450.0); RED BLOOD COUNT 3.36 X10^6/uL (4.7-6.0); RED CELL DISTRIBUTION WIDTH 16.2 % (11.6-16.5); WHITE BLOOD COUNT 3.9 X10^3/uL (3.6-10.0)
[2019-05-18 05:52] LABS: ALANINE AMINOTRANSFERASE 36 Units/L (12-78); ALBUMIN 2.5 g/dL (3.4-5.0); ALKALINE PHOSPHATASE 74 Units/L (46-116); ASPARTATE AMINO TRANSFERASE 42 Units/L (15-37); BLOOD UREA NITROGEN 8 mg/dL (7-18); CALCIUM 8.4 mg/dL (8.5-10.1); CARBON DIOXIDE 23.9 mmol/L (21-32); CHLORIDE 105 mmol/L (98-107); COR CA(FOR HYPOALB) 9.6 mg/dL (8.5-10.1); CREATININE 0.86 mg/dL (0.70-1.30); SODIUM 137 mmol/L (136-145); TOTAL PROTEIN 6.2 g/dL (6.4-8.2); eGFR NON BLACK RACES > 60 (>60)
--- NOTE | 2019-05-18 05:56 | RAD ---
Chest, one view Indication: Shortness of breath Comparison: 05/17/2019 Findings: Heart is normal in size for AP technique. Prior CABG noted. There is advanced upper lobe predominant bullous emphysema. No definite acute alveolar infiltrate or significant effusion is identified. No pneumothorax. Impression: Advanced bullous emphysema. Otherwise, no acute chest process. Reported By:
[2019-05-18] MEDS: TORADOL 30 MG VIAL IVP PRN (07:00)
[2019-05-18] MEDS: DUONEB 0.5 MG/3 MG NEB SCH (08:53)
[2019-05-18] MEDS: PEPCID 20 MG IV PREMIX* 20 MG/50 ML BAG IV SCH (09:05)
[2019-05-18] MEDS: PROTONIX INJ 40 MG VIAL IVP SCH (09:06)
[2019-05-18] MEDS: ULTRAM PO SCH (09:06)
[2019-05-18] MEDS: LOVENOX INJ 40 MG SYR SC SCH (09:06)
[2019-05-18] MEDS: LEVAQUIN PREMIX IV 500 MG 500 MG/100 ML BAG IV SCH (09:48)
--- NOTE | 2019-05-18 11:24 | PCM.PROG ---
Progress Note - Progress Note for Day of Date of Exam: 05/17/19 - Subjective Subjective: WAS ADMITTED FOR PNEUMONIA AND CHEST PAIN, RULE OUT ACUTE MO. TODAY, HE IS ALERT AND ORIENED, LYING IN BED ON MORNING ROUNDS. HE CONTINUE WITH COMPLAINTS OF SHORTNESS OF BREATH TDOAY. HE DOES HAVE A HISTORY OF EMPHYSEMA AND COPD. ON EXAMINATION, HEART IS REGULAR IN RATE AND RHYTHM. B ILATERAL LUNGS ARE NOTED WITH DIMINISHED LUNG SOUNDS THROUGHOUT. ABDOMEN IS ROUND, SOFT, AND NON-TENDER WITH NORMAL BOWEL SOUNDS IN ALL QUADRANTS. BILATERAL ELBOWS CONTINUE WITH FLUID ACCUMULATION. WE HAVE DISCUSSED WITH HIM POSSIBLY DRAINING THIS OFF IN THE OFFICE. HIS VITALS THIS MORNING ARE 98.7- 100-18-96%-88/54. LABS WERE OBTAINED. ABNORMAL LAB VALUES INCLUDE THE FOLLOWING: RBC 3.40, HGB 11.6, HCT 33.6, PLT COUNT 119, SODIUM 134, CALCIUM 8.4, AST 45, ALBUMIN 2.7. BLOOD AND SPUTUM CULTURES ARE PENDING. A CHEST XRAY WAS OBTAINED AND REVEALED: EMPHASYMATOUS COPD. HE IS CURRENTLY RECEIVING IV FLUIDS AND IV ANTIBIOTICS. WE WILL CONTINUE WITH CURRENT PLAN OF CARE TODAY. OTHERWISE, WE PLAN TO FOLLOW UP WITH AM LABS AND CONTINUE TO MONITOR. - Past Medical Family Social History Past Med/Fam/Surg Hx: No changes since H&P Allergies: Allergies No Known Drug Allergies Allergy (Verified 05/14/19 09:39) - Review of Systems ROS: No change since H&P - Vital Signs and I&O's Vital Signs: Temperature 98.0 F Pulse Rate [Brachial] 82 Pulse Rate 78 Respiratory Rate 18 Blood Pressure [Left Arm] 101/58 Blood Pressure 120/66 O2 Sat by Pulse Oximetry 98 Intake and Output: Intake & Output 05/15/19 05/16/19 05/17/19 05/18/19 11:59 11:59 11:59 11:59 Intake Total 3172 / 3172 2603 / 2603 2910 / 2910 2790 / 2790 Balance 3172 / 3172 2603 / 2603 2910 / 2910 2790 / 2790 - Physical Exam Oriented: Normal Eyes: Normal Ear: Normal Nose: Normal Throat: Normal Respiratory: Generalized, Diminished Cardiovascular: Normal. negative: S3, S4, Murmur : Normal Auscultation: Bowel Sounds: Normal Tenderness: Normal Skin: Normal Musculoskeletal: Normal Psychiatric: Normal Mood Description: Calm Affect: Normal Speech Pattern: Clear, Appropriate - Laboratory and Diagnostics Result Diagrams: 05/18/19 05:03 05/18/19 05:03 Labs: 05/15/19 12:05 Sputum - Expectorated Sputum Sputum Culture - Final 05/15/19 12:05 Sputum - Expectorated Sputum - Final 05/14/19 02:13 Blood Blood Culture - Preliminary 05/14/19 02:00 Blood Blood Culture - Preliminary Laboratory WBC 3.9 X10^3/uL (3.6-10.0) 05/18/19 05:03 RBC 3.36 X10^6/uL (4.7-6.0) L 05/18/19 05:03 Hgb 11.5 g/dL (13.5-18.0) L 05/18/19 05:03 Hct 33.4 % (42.0-54.0) L 05/18/19 05:03 MCV 99.5 fL (80.0-100.0) 05/18/19 05:03 MCH 34.2 pg (27.0-34.0) H 05/18/19 05:03 MCHC 34.4 g/dL (33.0-35.0) 05/18/19 05:03 RDW 16.2 % (11.6-16.5) 05/18/19 05:03 Plt Count 107 X10^3/uL (150.0-450.0) L 05/18/19 05:03 MPV 7.1 fL (7.4-11.0) L 05/18/19 05:03 Neut % (Auto) 65.1 % (42.0-75.0) 05/18/19 05:03 Lymph % (Auto) 18.8 % (21.0-51.0) L 05/18/19 05:03 [place] % (Auto) 7.8 % (0.0-13.0) 05/18/19 05:03 Eos % (Auto) 8.0 % (0.9-2.9) H 05/18/19 05:03 Baso % (Auto) 0.3 % (0.2-1.0) 05/18/19 05:03 Neut # (Auto) 2.5 x10^3/uL (2.2-4.8) 05/18/19 05:03 Lymph # (Auto) 0.7 X10^3/uL (1.3-2.9) L 05/18/19 05:03 [place] # (Auto) 0.3 x10^3/uL (0.3-0.8) 05/18/19 05:03 Eos # (Auto) 0.3 x10^3/uL (0.0-0.2) H 05/18/19 05:03 Baso # (Auto) 0.0 X10^3/uL (0.0-0.1) 05/18/19 05:03 Absolute Nucleated RBC 0.2 /100WBC 05/18/19 05:03 ESR 43 MM/HOUR (0-15) H 05/14/19 04:14 Sodium 137 mmol/L (136-145) 05/18/19 05:03 Corrected Sodium TNP 05/18/19 05:03 Potassium 3.8 mmol/L (3.5-5.1) 05/18/19 05:03 Chloride 105 mmol/L (98-107) 05/18/19 05:03 Carbon Dioxide 23.9 mmol/L (21-32) 05/18/19 05:03 BUN 8 mg/dL (7-18) 05/18/19 05:03 Creatinine 0.86 mg/dL (0.70-1.30) 05/18/19 05:03 Est GFR (MDRD) Af Amer > 60 (>60) 05/18/19 05:03 Est GFR (MDRD) Non-Af > 60 (>60) 05/18/19 05:03 Glucose 101 mg/dL (65-99) H 05/18/19 05:03 Calcium 8.4 mg/dL (8.5-10.1) L 05/18/19 05:03 Corrected Calcium 9.6 mg/dL (8.5-10.1) 05/18/19 05:03 Magnesium 2.0 mg/dL (1.7-2.9) 05/15/19 04:46 Total Bilirubin 0.40 mg/dL (0.2-1.0) 05/18/19 05:03 AST 42 Units/L (15-37) H 05/18/19 05:03 ALT 36 Units/L (12-78) 05/18/19 05:03 Alkaline Phosphatase 74 Units/L (46-116) 05/18/19 05:03 Creatine Kinase 24 Units/L (39-308) L 05/14/19 11:10 CK-MB (CK-2) < 1.0 ng/mL (0-4.0) 05/14/19 11:10 CK/CKMB % Calc 4.2 % (<4) 05/14/19 11:10 Troponin I < 0.02 ng/mL (0-1.5) 05/14/19 11:10 C-Reactive Protein 70.30 mg/L (0-3.0) H 05/14/19 04:14 Total Protein 6.2 g/dL (6.4-8.2) L 05/18/19 05:03 Albumin 2.5 g/dL (3.4-5.0) L 05/18/19 05:03 Globulin 3.7 g/dL (2.5-4.5) 05/18/19 05:03 Albumin/Globulin Ratio 0.7 Ratio (1.1-2.1) L 05/18/19 05:03 Specimen Type Clean catch urine 05/14/19 10:58 Urine Color Dark yellow (YELLOW) 05/14/19 10:58 Urine Appearance Hazy (CLEAR) 05/14/19 10:58 Urine pH 5.0 (5.0 - 8.0) 05/14/19 10:58 Ur Specific [place] 1.010 (1.000-1.030) 05/14/19 10:58 Urine Protein 1+ (NEGATIVE) 05/14/19 10:58 Urine Glucose (UA) Negative (NEGATIVE) 05/14/19 10:58 Urine Ketones Negative (NEGATIVE) 05/14/19 10:58 Urine Occult Blood 1+ (NEGATIVE) 05/14/19 10:58 Urine Nitrite Negative (NEGATIVE) 05/14/19 10:58 Urine Bilirubin Negative (NEGATIVE) 05/14/19 10:58 Urine Urobilinogen 1+ (NORMAL) 05/14/19 10:58 Ur Leukocyte Esterase 1+ (NEGATIVE) 05/14/19 10:58 Urine RBC 0-2 /HPF (NONE SEEN) 05/14/19 10:58 Urine WBC 3-5 /HPF (NONE SEEN) 05/14/19 10:58 Ur Squamous Epith Cells Rare /HPF (NEGATIVE) 05/14/19 10:58 Urine Bacteria Trace /HPF (NEGATIVE) 05/14/19 10:58 Ur Culture Indicated? No/not indicated 05/14/19 10:58 - Plan (1) Pneumonia Status: Acute Qualifiers: Pneumonia type: due to unspecified organism Laterality: left Lung location: unspecified part of lung Qualified Code(s): J18.9 - Pneumonia, un specified organism Plan: IV ANTIBIOTICS, RESPIRATORY TX, CONTINUE TO MONITOR (2) Chest pain, rule out acute myocardial infarction Status: Acute Plan: CONTINUE TO MONITOR (3) Rheumatoid arthritis Status: Acute Qualifiers: Rheumatoid arthritis location: multiple sites Rheumatoid factor presence: unspecified presence Qualified Code(s): M06.9 - Rheumatoid arthritis, unspecified Plan: TORADOL 30MG IV Q6H, CONTINUE TO MONITOR
[2019-05-18 12:22] VITALS: BP 104/59
== END 2019-05-18 12:10 | disposition home or self-care (01) | DRG 195 ==
LOC: ER 21:16 → MED/SURG 21:16 → EDBD 21:16 → MERGE 05-14 02:17 → MED/SURG 05-14 02:48
PROVIDERS: ADMIT Internal Medicine; ATTEND Internal Medicine
DX: R26.89 Other abnormalities of gait and mobility; R79.82 Elevated C-reactive protein (CRP); M06.9 Rheumatoid arthritis, unspecified; J18.8 Other pneumonia, unspecified organism; R07.89 Other chest pain; J44.9 Chronic obstructive pulmonary disease, unspecified
CPT/HCPCS: 36415; 71010; 71045; 71260; 80053; 81001; 82550; 82553; 83735; 84484; 85025; 85652; 86140; 87040; 87070; 87205; 93005; 94640; 94760; 96365; 96367; 96374; 96375; 97110; 97162; 97166; 97530; 97535; 99284; A4222; C9113; S0028; G0378; J0696; J0713; J1650; J1885; J1956; J2270; J2405; J3475; J3490; J7030; J7050; J7060; J7620